=== PATIENT | female | born 1985 | race Caucasian/White ===

== ENCOUNTER 2021-03-21 02:34 | Emergency (ER) | payer MEDICAID ==
[~2021-03-21] VITALS: Ht 167.6 cm; Wt 70.0 kg
[2021-03-21] MEDS ORDERED: proCHLORperazine 10 MG/2 ml inj IV ONE ×2 (03:35→05:25)
[2021-03-21] MEDS ORDERED: ketorolac tromethamine 15mg/ml inj. IV ONE ×2 (03:35→05:25)
[2021-03-21] MEDS ORDERED: diphenhydrAMINE 50 mg/ml inj IV ONE ×2 (03:35→05:25)
[2021-03-21] MEDS ORDERED: normal saline 1000ml 1,000 ML IV ONE ×2 (03:35→05:25)
[2021-03-21 06:20] VITALS: BP 122/80
== END 2021-03-21 06:22 | disposition home or self-care (01) ==
LOC: ER 02:35
DX: G43.909 Migraine, unspecified, not intractable, without status migrainosus (principal); Z88.0 Allergy status to penicillin; Z88.8 Allergy status to other drugs, medicaments and biological substances
CPT/HCPCS: 96361; 96374; 96375; 96376; 99284; J0780; J1200; J1885; J7030; 99285

== ENCOUNTER 2021-05-14 03:46 | Emergency (ER) | payer MEDICAID ==
[~2021-05-14] VITALS: Ht 170.2 cm; Wt 72.7 kg
[2021-05-14 03:49] VITALS: BP 120/84
[2021-05-14 04:29] LABS: UA COLLECTION TYPE CLN CATCH MIDSTREAM
[2021-05-14 04:30] LABS: CLARITY,URINE SLIGHTLY CLOUDY (Clear); COLOR,URINE ORANGE (Yellow)
[2021-05-14 04:36] LABS: WBC,URINE 30-50 /HPF (0-4)
[2021-05-14 04:37] LABS: BACTERIA,URINE FEW /HPF (Neg); RBC,URINE 0-2 /HPF (0-2); SQUAMOUS EPITHELIAL CELL,UR MODERATE /LPF (FEW)
== END 2021-05-14 04:55 | disposition home or self-care (01) ==
LOC: ER 03:46
DX: N39.0 Urinary tract infection, site not specified (principal); R30.0 Dysuria; R10.30 Lower abdominal pain, unspecified
CPT/HCPCS: 81001; 87088; 99283

== ENCOUNTER 2021-08-15 00:16 | Emergency (ER) | payer MEDICAID, OTHER ==
[~2021-08-15] VITALS: Ht 167.6 cm; Wt 68.2 kg
[2021-08-15 00:19] VITALS: BP 106/66
[2021-08-15] MEDS ORDERED: naproxen 500mg tablet PO ONE (00:30)
[2021-08-15] MEDS ORDERED: metoclopramide 10mg tablet PO ONE (00:30)
[2021-08-15] MEDS ORDERED: diphenhydrAMINE 25mg capsule PO ONE (00:30)
[2021-08-15] MEDS ORDERED: diphenhydrAMINE 50 mg/ml inj IV ONE (02:45)
[2021-08-15] MEDS ORDERED: normal saline 1000ml 1,000 ML IV ONE (02:45)
[2021-08-15] MEDS ORDERED: LORazepam 2 mg/ml vial IV ONE (02:45)
== END 2021-08-15 08:09 | disposition home or self-care (01) ==
LOC: ER 00:16
DX: G43.909 Migraine, unspecified, not intractable, without status migrainosus (principal); Z88.0 Allergy status to penicillin; Z88.8 Allergy status to other drugs, medicaments and biological substances
CPT/HCPCS: 96361; 96374; 96375; 99284; J1200; J2060; J7030; Q0163